=== PATIENT | male | born 1965 | race Caucasian/White ===

== ENCOUNTER 2022-07-01 16:13 | Emergency (ER) | payer BC ==
[~2022-07-01] VITALS: Ht 180.3 cm; Wt 96.6 kg
[2022-07-01 16:30] LABS: BASOPHILS % (AUTO) 0.4 % (0.0-5.0); EOSINOPHILS % (AUTO) 0.4 % (0.0-8.0); HEMATOCRIT 41.9 % (42-54); LYMPHOCYTES % (AUTO) 13.1 % (21.0-51.0); MEAN CORPUSCULAR HEMOGLOBIN 30.1 pg (27.0-33.0); MEAN CORPUSCULAR HGB CONC 34.8 g/dL (32.0-36.0); MEAN CORPUSCULAR VOLUME 86.4 fL (79-99); MONOCYTES % (AUTO) 4.5 % (3.0-13.0); PLATELET COUNT (AUTO) 219 K/uL (130-400); RED BLOOD CELL COUNT(AUTO) 4.85 MIL/uL (4.50-6.20); RED CELL DISTRIBUTION WIDTH 12.2 % (11.0-15.5); WHITE BLOOD COUNT (AUTO) 13.5 K/uL (4.8-10.8)
[2022-07-01] MEDS ORDERED: LACTATED RINGERS 1000ML 1,000 ML IV ONE (16:30)
[2022-07-01 16:41] LABS: CREATININE 1.3 mg/dL (0.5-1.5); POTASSIUM 3.9 mmol/L (3.5-5.1)
[2022-07-01 16:45] LABS: ALBUMIN 3.9 g/dL (3.5-5.0)
[2022-07-01] MEDS ORDERED: TAMS-1 PO (17:53)
[2022-07-01] MEDS ORDERED: IBUP-1493 PO (17:53)
[2022-07-01 18:01] VITALS: BP 154/84
== END 2022-07-01 18:04 | disposition home or self-care (01) ==
LOC: EDH 16:13
DX: N20.1 Calculus of ureter (principal)
CPT/HCPCS: 99284; 74176; 96360; 80053; 85025; 36415; J7120